=== PATIENT | male | born 1990 | race Two or more races ===

== ENCOUNTER 2019-05-18 23:57 | Emergency (ER) | payer BC ==
[~2019-05-18] VITALS: Ht 180.3 cm; Wt 109.8 kg
[2019-05-19 00:04] VITALS: BP 139/80
[2019-05-19] MEDS ORDERED: MAG HYDROX/AL HYDROX/SIMETH 30 ML UDC ONE (00:17)
[2019-05-19] MEDS ORDERED: LIDOCAINE VISCOUS 2% UD 15 ML UDC ONE (00:17)
[2019-05-19] MEDS ORDERED: LIDOCAINE VISCOUS 2% UD 15 ML UDC MM ONE (00:30)
[2019-05-19] MEDS ORDERED: MAG HYDROX/AL HYDROX/SIMETH 30 ML UDC PO ONE (00:30)
== END 2019-05-19 01:50 | disposition home or self-care (01) ==
LOC: ER 05-19
DX: K21.9 Gastro-esophageal reflux disease without esophagitis (principal)

== ENCOUNTER 2020-07-04 22:13 | Emergency (ER) | payer SELFPAY ==
[~2020-07-04] VITALS: Ht 180.3 cm; Wt 115.7 kg
--- NOTE | 2020-07-04 23:23 | NUR ---
PRESENTED TO THE ER FOR C/O INTERMITTENT H/A AND DIZZINESS S/P SOMETHING FELL ON HIS HEAD. PT AMBULATORY TO BED 1 ER WAS PLACED ON A MONITOR . VSS. WILL CONT TO MONITOR,
--- NOTE | 2020-07-04 23:49 | NUR ---
DR RIGGINS AT BED SIDE
--- NOTE | 2020-07-05 00:02 | NUR ---
EMT AT BED SIDE FOR EKG
[2020-07-05 00:07] LABS: BASOPHILS # (AUTO) 0.1 /CMM (0.0-0.2); EOSINOPHILS % (AUTO) 2.2 % (0.0-6.0); HEMATOCRIT 45 % (39-51); HEMOGLOBIN 15.5 g/dL (13.5-17.5); LYMPHOCYTES # (AUTO) 2.5 /CMM (0.8-4.8); LYMPHOCYTES % (AUTO) 41.5 % (20.0-44.0); MEAN CORPUSCULAR HGB CONC 35 g/dl (31.0-36.0); MEAN CORPUSCULAR VOLUME 84 fL (80-96); MONOCYTES # (AUTO) 0.4 /CMM (0.1-1.30); MONOCYTES % (AUTO) 6.1 % (2.0-12.0); NEUTROPHILS % (AUTO) 49.2 % (43.0-81.0); PLATELET COUNT (AUTO) 247 /CMM (150-450); WHITE BLOOD COUNT (AUTO) 6.1 K/uL (4.3-11.0)
[2020-07-05 00:26] LABS: CALCIUM, SERUM 8.6 mg/dL (8.5-10.1); POTASSIUM 3.6 mmol/L (3.5-5.1)
--- NOTE | 2020-07-05 00:39 | NUR ---
pt is medically stable for d/c. Patient discharged to home in stable condition. Written and verbal after care instructions given. Patient verbalizes understanding of instruction.
[2020-07-05 00:40] VITALS: BP 129/78
== END 2020-07-05 00:41 | disposition home or self-care (01) ==
LOC: ER 22:15
DX: R42 Dizziness and giddiness (principal)
CPT/HCPCS: 36415; 80048-TC; 85025-TC